=== PATIENT | female | born 1995 | race Caucasian/White ===

== ENCOUNTER 2023-09-01 17:22 | Emergency (ER) | payer BC, SELFPAY ==
--- NOTE | ~2023-09-01 | US_ITS ---
EXAMINATION: US OB <= 14 weeks fetus DATE: 09/01/2023 19:24 INDICATION: Vaginal bleeding. TECHNIQUE: Real-time transabdominal and transvaginal pelvic ultrasound was performed. COMPARISON: None. FINDINGS: TRANSABDOMINAL ULTRASOUND: The uterus measures 10.5 x 7.1 x 7.6 cm. TRANSVAGINAL ULTRASOUND: There is an intrauterine gestational sac. The crown rump length measur es 4.9 cm, which correlates with an estimated gestational age of 11 weeks and 5 day(s) (+/-) 1 week(s ) and 0 day(s). heart motion is identified measuring 173 beats per minute (bpm) by M-mode Doppl er. The right ovary is not visualized. The left ovary measures 3.1 x 1.6 x 2.4 cm. There is no free f luid in the pelvis. IMPRESSION: 1. Single living intrauterine gestation with estimated date of delivery of 03/17/2024. Reviewed, dictated and finalized at location [facility]. Y LEVEL ACCOUNT REPRESENTATIVE IMPRESSION: 1. Single living intrauterine gestation with estimated date of delivery of 02/21.
[2023-09-01 17:29] VITALS: BP 106/65; PULSE 76; RESP 17; TEMP 36.4; O2SAT 100
[2023-09-01 18:56] LABS: Basophils Percent Auto 0.2 % (0.2-1.2); Eosinophils Absolute Auto 0.1 K/mm3 (0-0.3); Eosinophils Percent Auto 1.2 % (0-4.4); Hematocrit 33.1 % (37.0-47.0); Hemoglobin 10.8 g/dL (12.0-15.0); Immature Granulocyte Absolute 0.03 K/mm3 (0.00-0.031); Immature Granulocyte Percent A 0.3 % (0-0.5); Lymphocytes Absolute Auto 2.09 K/mm3 (0.9-3.2); Lymphocytes Percent Auto 24.2 % (18.3-44.2); Mean Corpuscular HGB Conc 32.6 g/dl (32-36); Mean Corpuscular Hemoglobin 26.2 pg (26-34); Mean Corpuscular Volume 80.1 fl (80-100); Mean Platelet Volume 9.3 fl (7.4-10.4); Monocytes Absolute Auto 0.6 K/mm3 (0.1-0.6); Neutrophils Absolute Auto 5.8 K/mm3 (1.3-6.7); Neutrophils Percent Auto 67.1 % (45.5-73.1); Platelet Count Result 289 k/mm3 (150-375); Red Blood Count 4.13 M/mm3 (4.2-5.4); Red Cell Distribution Width 14.1 % (11.5-14.5); White Blood Count 8.6 K/mm3 (4.5-10.0)
[2023-09-01 19:02] LABS: Appearance Urine Cloudy (Clear); Bacteria Urine 1+ /hpf; Bilirubin Urine Negative (Negative); Blood Urine 3+ (Negative); Color Urine Yellow (Yellow); Glucose Urine UA 3+ mg/dL (Negative); Ketones Urine Negative (Negative); Leukocyte Esterase Ur Negative LEU/UL (Negative); Nitrate Urine Negative (Negative); Non Pathogenic Casts 0-2; Protein Urine 1+ mg/dL (Negative); RBC Urine 21-50 /hpf (0-2); Specific Grav Ur 1.028 (1.001-1.035); Squamous Epithelial Cell Urine Many /hpf (Few); Urobilinogen Urine 0.2 mg/dL (<2.0)
[2023-09-01 19:06] LABS: INR 1.1; Prothrombin Time 14.5 Seconds (11.1-14.7)
[2023-09-01 19:07] LABS: Partial Thromboplastin Time 29.6 SECONDS (22.3-36.8)
[2023-09-01 19:08] LABS: Add Urine Microscopic? YES
[2023-09-01 19:10] LABS: Alanine Aminotransferase 11 U/L (6-35); Albumin Level 3.7 g/dL (3.5-5.1); Alkaline Phosphatase 64 U/L (38-126); Anion Gap 9 mmol/L (8-16); Aspartate Amino Transferase 12 U/L (14-36); Bilirubin,Total 0.3 mg/dL (0.2-1.3); Blood Urea Nitrogen 7 mg/dL (7-17); Calcium 8.9 mg/dL (8.4-10.2); Carbon Dioxide 26 mmol/L (22-30); Chloride 100 mmol/L (98-107); Estimated CRCL calculation 204 ml/min; Estimated Glomerular Filt Rate > 60; Glucose 212 mg/dL (65-110); Potassium 3.6 mmol/L (3.4-5.0); Sodium 135 mmol/L (137-145)
[2023-09-01 19:32] LABS: Beta HCG Quantitative > 15000.00 mIU/ML
[2023-09-01 19:54] VITALS: BP 114/86; PULSE 82; RESP 18; O2SAT 100
--- NOTE | 2023-09-01 20:11 | ED.FEMALEGU ---
HPI - Female Genitourinary General Chief complaint: Vaginal Bleeding Stated complaint: vaginal bleeding Time Seen by Provider: 09/01/23 18:35 Source: patient Mode of arrival: ambulatory Limitations: no limitations History of Present Illness HPI Narrative: 28-year-old female 2 para 1 presents today with complaints of vaginal bleeding that started today. Patient is 12 weeks . [facility]. States she has had issues of vaginal bleeding throughout the entire . Has had multiple ultrasounds done. Last sexual activity was 5 days ago per patient. Denies any lightheadedness, dizziness, heart palpitations. Is unsure the reason of her vaginal bleeding. She is type 2 diabetic who is currently on insulin to control her sugars. Has been educated by her Ob were to keep her sugars. Aware that her sugar today is 212. Patient does deny any abdominal pain or cramping at this time. MD elicited complaint: vaginal bleeding Related Data : 2 Para: 1 Home Medications Medication Instructions Recorded Confirmed insulin NPH isoph U-100 human 100 unit subcut 09/01/23 unit/mL subcutaneous suspension (Humulin N NPH U-100 Insulin (isophane susp)) insulin syringe-needle U-100 0.3 09/01/23 09/01/23 mL 31 gauge x 5/16 (BD Insulin Syringe Ultra-Fine) valacyclovir 500 mg tablet mg 09/01/23 09/01/23 Allergies Allergy/AdvReac Type Severity Reaction Status Date / Time No Known Allergies Allergy Verified 09/01/23 19:55 Review of Systems Review of Systems: All systems reviewed & are unremarkable except as noted in HPI and below PMFSH Family History Family History Father Hypertension Family history of kidney disease Family history of diabetes mellitus in first degree relative Grandparent Family history of malignant neoplasm of breast Diabetes mellitus Social History Social History Smoking status: Never smoker Alcohol intake: never Exam Const: General: cooperative, healthy appearing, comfortable, no acute distress and well developed Orientation/consciousness: patient oriented x3 HENMT: Head: normal to inspection Eyes: General: appearance normal, both eyes and all related structures Resp: Effort & Inspection: normal respiratory effort and able to speak in complete sentences Auscultation: clear to auscultation bilaterally Cardio: Rate: regular rate Rhythm: regular rhythm Heart sounds: S1 normal heart sound present and S2 normal heart sound present : External Female Exam: normal external appearance Speculum Exam - Vagina: no lacerations, no lesions and vaginal bleeding Speculum Exam - Cervix: normal appearance of the cervix and Cervical os closed Other: analytics consultant with pelvic exam Neuro: General: patient oriented x3 Course Course Emergency Course: Results discussed with patient. Contacted Dr. Ayala who is her Ob and updated on plan of care. Patient to be discharged home with pelvic rest and follow up with them on Monday. Aware to return with any new or worsening concerns. Consultations Consultation #1: discussed with OB Dr. Ayala. Will follow up on Monday Vital Signs Vital signs: Vital Signs Temperature 97.5 F L 09/01/23 17:29 Pulse Rate 76 09/01/23 17:29 Respiratory Rate 17 09/01/23 17:29 Blood Pressure 106/65 09/01/23 17:29 Pulse Oximetry 100 09/01/23 17:29 Oxygen Delivery Room Air 09/01/23 17:29 Temperature 97.5 F L 09/01/23 17:29 Pulse Rate 82 09/01/23 19:54 Respiratory Rate 18 09/01/23 19:54 Blood Pressure 114/86 09/01/23 19:54 Pulse Oximetry 100 09/01/23 19:54 Oxygen Delivery Room Air 09/01/23 17:29 MDM - Female Genitourinary MDM Narrative Medical decision making narrative: 28-year-old female HPI is noted differentials as below. Workup included CBC CMP and type and c
[2023-09-01] MEDS: CEPHALEXIN 500 MG CAPSULE PO (20:44)
== END 2023-09-01 20:48 | disposition home or self-care (01) ==
PROVIDERS: Emergency Provider Nurse Practitioner Family
DX: O20.9 Hemorrhage in early pregnancy, unspecified (principal); O24.111 Pre-existing type 2 diabetes mellitus, in pregnancy, first trimester; Z3A.12 12 weeks gestation of pregnancy; Z79.4 Long term (current) use of insulin; Z79.899 Other long term (current) drug therapy
CPT/HCPCS: 36415; 76801; 80053; 81001; 81025; 84702; 85025; 85610; 85730; 86850; 86900; 86901; 87077; 87086; 87088; 99284; A9270

== ENCOUNTER 2024-04-13 07:35 | Emergency (ER) | payer BC, SELFPAY ==
--- NOTE | ~2024-04-13 | CT_ITS ---
EXAMINATION: CT lumbar spine wo con DATE: 04/13/2024 08:42 INDICATION: Lower back pain, tailbone pain following being knocked to the ground, landing on her ly om yesterday TECHNIQUE: Computed tomography (CT) of the lumbar spine was performed without intravenous contrast. A utomated exposure control and iterative reconstruction technique were employed. Exam dose: 779.85 mG y-cm total exam DLP. COMPARISON: None FINDINGS: There is mild anterior wedge compression fracture of T12 which may be recent. No lumbar spine fracture or dislocation or spondylolisthesis. Lumbar and lumbosacral spaces are well preserved. No sacral or coccygeal fracture is evident. Normal alignment at the sacroiliac joints. Probable bone island of the right sacral alar. IMPRESSION: Mild anterior wedge T12 compression fracture, likely recent Reviewed, dictated and finalized at [facility]. Reviewed, dictated and finalized at [facility].
--- NOTE | 2024-04-13 07:56 | ED.GENADULT ---
HPI - General Adult General Chief complaint: Back Pain/Injury Stated complaint: lower back pain Time Seen by Provider: 04/13/24 07:46 History of Present Illness HPI narrative: 28-year-old female presenting to the emergency department for evaluation of lower back pain. Patient reports last night she was knocked to the ground and landed on her bottom. Patient reports lower back pain. Patient denies striking her head denies any neck pain and denies any loss consciousness. Patient denies any associated numbness or weakness. Patient has reported increased pain with ambulation Related Data Home Medications Medication Instructions Recorded Confirmed insulin NPH isoph U-100 human 100 unit subcut 09/01/23 unit/mL subcutaneous suspension (Humulin N NPH U-100 Insulin (isophane susp)) insulin syringe-needle U-100 0.3 09/01/23 09/01/23 mL 31 gauge x 5/16 (BD Insulin Syringe Ultra-Fine) valacyclovir 500 mg tablet mg 09/01/23 09/01/23 Allergies Allergy/AdvReac Type Severity Reaction Status Date / Time No Known Allergies Allergy Verified 09/01/23 19:55 Review of Systems Review of Systems: All systems reviewed & are unremarkable except as noted in HPI and below PMFSH Family History Family History Father Hypertension Family history of kidney disease Family history of diabetes mellitus in first degree relative Grandparent Family history of malignant neoplasm of breast Diabetes mellitus Social History Social History Smoking status: Never smoker Alcohol intake: never Exam Narrative: APPEARANCE: Well appearing, no pain, no distress, well-nourished. HEAD: normocephalic, atraumatic. EYES: PERRLA/EOMI, conjunctivae clear. NOSE: Normal no drainage EARS:TMS clear with good light reflex. THROAT: Pharynx clear, no exudate. NECK: Supple. No adenopathy, no masses. RESPIRATORY: Airway patent, respirations nonlabored. Clear to auscultation bilaterally, no rales, rhonchi, wheezing. CARDIOVASCULAR: Regular rate and rhythm without murmurs rubs or gallops. ABDOMINAL: Soft, nontender, nondistended, normal bowel sounds MUSCULOSKELETAL: Lumbar tenderness to palpate NEURO: Alert. Cranial nerves II through XII intact. Grossly intact SKIN: Warm, dry. Normal Color Course Course Emergency Course: Mild T12 compression fracture, neurologically intact. Patient was provided medications for pain control and encouraged to have follow-up with Neurosurgery. Vital Signs Vital signs: Vital Signs Temperature 98.0 F 04/13/24 08:15 Pulse Rate 99 04/13/24 08:15 Respiratory Rate 16 04/13/24 08:15 Blood Pressure 147/95 H 04/13/24 08:15 Pulse Oximetry 99 04/13/24 08:15 Oxygen Delivery Room Air 04/13/24 08:15 Temperature 98.0 F 04/13/24 08:15 Pulse Rate 99 04/13/24 08:15 Respiratory Rate 16 04/13/24 08:15 Blood Pressure 147/95 H 04/13/24 08:15 Pulse Oximetry 99 04/13/24 08:15 Oxygen Delivery Room Air 04/13/24 08:15 Medical Decision Making MDM Narrative Medical decision making narrative: 28-year-old female present to the emergency department for evaluation for back pain after a ground level fall, patient states she was knocked onto her bottom last night. Patient denies striking head denies loss of consciousness. CT does show mild compression fracture of T12. Patient is neurologically intact. Patient was provided medications for pain control and encouraged to have follow-up with Neurosurgery. All questions concerns were addressed. Differential Diagnosis Differential Diagnosis: Back contusion, compression fracture, musculoskeletal injury Vital Signs Vital Signs: Vital Signs Temperature 98.0 F 04/13/24 08:15 Pulse Rate 99 04/13/24 08:15 Respiratory Rate 16 04/13/24 08:15 Blood Pressure 147/95 H 04/13/24 08:15 Pulse Oximetry 99 04/13/24 08:15 Oxy
[2024-04-13] MEDS: HYDROcodone/acetaminophen (*CRX) 5-325 MG TABLET 1 TAB PO (08:10)
[2024-04-13 08:15] VITALS: BP 147/95; PULSE 99; RESP 16; TEMP 36.7; O2SAT 99
[2024-04-13 08:35] LABS: Appearance Urine Cloudy (Clear); Bacteria Urine 1+ /hpf; Bilirubin Urine Negative (Negative); Blood Urine 2+ (Negative); Color Urine Yellow (Yellow); Glucose Urine UA 2+ mg/dL (Negative); Ketones Urine Negative (Negative); Leukocyte Esterase Ur Trace LEU/UL (Negative); Nitrate Urine Negative (Negative); Non Pathogenic Casts 0-2; Protein Urine Negative (Negative); RBC Urine 0-2 /hpf (0-2); Specific Grav Ur 1.014 (1.001-1.035); Squamous Epithelial Cell Urine Few /hpf (Few); Urobilinogen Urine 0.2 mg/dL (<2.0)
[2024-04-13] MEDS: CYCLOBENZAPRINE HCL 10 MG TABLET PO (08:54)
[2024-04-13 09:04] LABS: Add Urine Microscopic? YES
== END 2024-04-13 09:53 | disposition home or self-care (01) ==
PROVIDERS: Emergency Provider Emergency Medicine
DX: S22.080A Wedge compression fracture of T11-T12 vertebra, initial encounter for closed fracture (principal); Z79.4 Long term (current) use of insulin; Z79.899 Other long term (current) drug therapy; W51.XXXA Accidental striking against or bumped into by another person, initial encounter
CPT/HCPCS: 72131; 81001; 81025; 87086; 87088; 99284; A9270